=== PATIENT | male | born 1970 | race Caucasian/White ===

== ENCOUNTER 2017-03-31 10:20 | Inpatient (IN) | payer OTHER ==
[2017-03-31 11:19] VITALS: BMI 25.0
--- NOTE | 2017-03-31 11:23 | HP ---
CIWA Score - CIWA Score Nausea/Vomitin-Int. Nausea w/Dry Heave Muscle Tremors: 5 (UNABLE TO HOLD CUP OF WATER STEADILY.) Anxiety: 5 Agitation: 3 Paroxysmal Sweats: 1-Minimal Palms Moist Orientation: 0-Oriented Tacttile Disturbances: 3-Moderate Itch/Numb/Burn Auditory Disturbances: 0-None Visual Disturbances: 0-None Headache: 1-Very Mild CIWA-Ar Total Score: 22 Admission ROS BHS - HPI Chief Complaint: DETOX TX FOR ALCOHOL DEPENDENCE AND INTOXICATION Allergies/Adverse Reactions: Allergies Allergy/AdvReac Type Severity Reaction Status Date / Time No Known Allergies Allergy Verified 03/31/17 11:59 History of Present Illness: PT IS A 47 Y/O H/MALE WITH A HX ALCOHOL DEPENDENCE UNABLE TO CONTROL HIS ALCOHOL CONSUMPTION SEEKING DETOX TX. PT WAS REFERRED TO DETOX FROM [facility] WHERE HE WENT LAST NIGHT FOR C/O ALCOHOL INTOXICATION. CURRENT MIRNA = 0.132 AND PATIENT IS SLIGHTLY SLOW TO ANSWER QUESTIONS. PT IS ACCOMPANIED BY . 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 AND D/C'D 01/09/17. WENT THROUGH SPEECH REHAB/THERAPY . REPORTED ANOTHER SX ON 02/11/17 FOR FLAP REPLACEMENT HEAD SX. PT HAS A HX OF HIV+ ON THE MED-ODEFSEY 1 TAB PO DAILY. PT HAS PMD BOB PLATT M.D. REPORTS WAS ON KEPPRA WHILE INPATIENT FOR SURGERY BUT NEUROLOGIST D/C'D KEPPRA AFTER LAST FLAP SX. PT DENIES HX OF SEIZURE BEFORE OR AFTER HEAD TRUAMA. HX OF DEPRESSION-ON PAXIL. Exam Limitations: Clinical Condition, Intoxication, Language Barrier, Other ( slight speech deficit) - Ebola screening Have you traveled outside of the country in the last 21 days: No Have you had contact with anyone from an Ebola affected area: No Do you have a fever: No - Review of Systems Constitutional: Night Sweats, Changes in sleep EENT: reports: Tearing, Nose Congestion Respiratory: reports: No Symptoms reported Cardiac: reports: Lightheadedness, Palpitations, Chest Tightness GI: reports: Nausea, Poor Fluid Intake, Vomiting, Indigestion (REFLUX/HEARTBURN) , Abdominal cramping : reports: Frequency Musculoskeletal: reports: Joint Pain Integumentary: reports: No Symptoms Reported Neuro: reports: Headache, Tingling, Tremors, Unsteady Gait (HX OF FALL DUE TO ALCOHOL INTOXICATION), Dizziness Endocrine: reports: No Symptoms Reported Hematology: reports: No Symptoms Reported Psychiatric: reports: Orientated x3, Anxious, Depressed Other Systems: Reviewed and Negative Patient History - Patient Medical History Hx Anemia: No Hx Asthma: No Hx Chronic Obstructive Pulmonary Disease (COPD): No Hx Cardiac Disorders: No Hx Hypertension: No Hx Hypercholesterolemia: No HX Cerebrovascular Accident: No Hx Seizures: No (BUT WAS ON KEPPRA DUE TO BRAIN SX;STOPPED BY NEUROLOGIST 02/11/17 ) Hx Diabetes: No Hx Gastrointestinal Disorders: Yes (HEARTBURN-NO CURRENT MED) Hx Genitourinary Disorders: No Hx Sexually Transmitted Disorders: No (DENIES) Hx Renal Disease (ESRD): No Hx Thyroid Disease: No Hx Human Immunodeficiency Virus (HIV): Yes (SINCE 2005-ON ODEFSEY 1 TAB PO DAILY ) Hx Hepatitis C: No Hx Depression: Yes (AND ANXIETY- WAS ON PAXIL) Hx Suicide Attempt: No (DENIES) Hx Bipolar Disorder: No Hx Schizophrenia: No - Patient Surgical History Past Surgical History: Yes Hx Neurologic Surgery: Yes (HEAD SX DUE TO BLEEDING IN THE BRAIN 11/28/16) Hx Cataract Extraction: No Hx Cardiac Surgery: No Hx Lung Surgery: No Hx Breast Surgery: No Hx Breast Biopsy: No Hx Abdominal Surgery: No Hx Appendectomy: No Hx Cholecystectomy: No Hx Genitourinary Surgery: No Hx Orthopedic Surgery: No Other Surgical History: TRACHEAOSTOMY SEQUALA OF BRAIN SX EPISODE Anesthesia Reaction: No - PPD History Previous Implant?: Yes Documented Results: Negative w/o proof Implanted On Prior R Admission?: No PPD to be Administered?: Yes - Reproductive History Patient is a Female of Child Bearing Age (11 -55 yrs old): No (MALE) - Smoking Cessation Smoking history: Former smoker Have you smoked in the past 12 months: No If you are a former smoker, when did you quit?: 20 YRS Hx Chewing Tobacco Use: No Initiated information on smoking cessation: No - Substance & Tx. History Hx Alcohol Use: Yes (WINE/BEER/WHISKEY) Hx Substance Use: No (DENIES) Substance Use Type: Alcohol Hx Substance Use Treatment: Yes (LAST TX IN [place], [place] IN NOV 2015.) - Substances Abused WINE/BEER Route: Oral Frequency: Daily Amount used: 1 BOTTLE WINE/4 6PKS BEER Age of first use: 17 Date of Last Use: 03/30/17 Family Disease History - Family Disease History Family Disease History: Heart Disease: Father (GA;), Other: Mother (HTN; ) Admission Physical Exam [facility] - Physical General Appearance: Yes: Moderate Distress, Alcohol on Breath, Intoxicated, Irritable, Anxious HEENTM: Yes: EOMI, Normocephalic, MICHAEL, Pharynx Normal Respiratory: Yes: Chest Non-Tender, Lungs Clear, Normal Breath Sounds, No Respiratory Distress Neck: Yes: Supple, Trachea in good position, Other (HEALED TRECHEOSTOMY SCAR) Breast: Yes: Breast Exam Deferred Cardiology: Yes: Regular Rhythm, Regular Rate, S1, S2 Abdominal: Yes: Non Tender, Soft, Surgical Scar (RIGHT SIDE OF ABDOMEN(SITE OF SKULL BONE STORAGE PRIOR TO FLAP TRANSPLANT 02/11/17) AND UPPER LEFT RELATED TO BRAIN SX EPISODE) Genitourinary: Yes: Other (N/C) Back: Yes: Within Normal Limits Musculoskeletal: Yes: full range of Motion, Gait Steady Extremities: Yes: Normal Range of Motion, Non-Tender, Tremors Neurological: Yes: acidizer water well II-XII NML intact, Fully Oriented, Alert Integumentary: Yes: Dry, Warm Lymphatic: Yes: Within Normal Limits - Diagnostic (1) Alcohol dependence with uncomplicated withdrawal Current Visit: Yes Status: Acute (2) Alcohol intoxication Current Visit: Yes Status: Acute Qualifiers: Complication of substance-induced condition: uncomplicated Qualified Code(s): F10.920 - Alcohol use, unspecified with intoxication, uncomplicated (3) History of brain surgery Current Visit: Yes Status: Resolved Comment: 11/28/16 AND 02/11/17 AT [facility]. (4) HIV (human immunodeficiency virus infection) Current Visit: Yes Status: [facility] (5) GERD (gastroesophageal reflux disease) Current Visit: Yes Status: Chronic Qualifiers: Esophagitis presence: without esophagitis Qualified Code(s): K21.9 - Gastro-esophageal reflux disease without esophagitis (6) Speech problem Current Visit: Yes Status: Acute Comment: S/P BRAIN TRUAMA/SURGERY SECONDARY TO BRAIN HEMORRHAGE DUE TO FALL Cleared for Admission BHS - Detox or Rehab [facility] Level of Care: Medically Managed Detox Regimen/Protocol: Librium
[2017-03-31] MEDS ORDERED: hydrOXYzine PAMOATE 50 MG CAPSULE (FP) PO PRN (12:18)
[2017-03-31] MEDS ORDERED: MAGNESIUM CITRATE 300 ML BOTTLE PO PRN (12:18)
[2017-03-31] MEDS ORDERED: LOPERAMIDE HCL 2 MG CAPSULE PO PRN (12:18)
[2017-03-31] MEDS ORDERED: P-EPHED 60MG/TRIPROLIDI 2.5MG TABLET PO PRN (12:18)
[2017-03-31] MEDS ORDERED: MENTHOL/PHENOL 1 EACH UD MM PRN (12:18)
[2017-03-31] MEDS ORDERED: MAGNESIUM HYDROX 2400MG/30ML ORAL SUSPENSION 30 ML CUP PO PRN (12:18)
[2017-03-31] MEDS ORDERED: guaiFENesin/D-METHORPHAN HB 10 ML UNIT-DOSE CUPS PO PRN (12:18)
[2017-03-31] MEDS: chlordiazePOXIDE HCL 25 MG CAPSULE PO PRN ×2 (13:29→20:11)
--- NOTE | 2017-03-31 13:37 | CONSULT ---
[facility] Psychiatric Consult - Data Date of interview: 03/31/17 Admission source: [facility] Identifying data: This is 47 years old bruneian speaking male with no psychiatric hospitalization history intoxicated with: Alcohol Substance Abuse History: - Smoking Cessation. Smoking history: Former smoker. Have you smoked in the past 12 months: No. If you are a former smoker, when did you quit?: 20 YRS. Hx Chewing Tobacco Use: No. Initiated information on smoking cessation: No. - Substance & Tx. History. Hx Alcohol Use: Yes (WINE/ BEER/WHISKEY). Hx Substance Use: No (DENIES). Substance Use Type: Alcohol. Hx Substance Use Treatment: Yes (LAST TX [place]OV 2015.). - Substances Abused. WINE/BEER. Route: Oral. Frequency: Daily. Amount used : 1 BOTTLE WINE/4 6PKS BEER. Age of first use: 17. Date of Last Use: 03/30/17 Medical History: HIV+, Brain surgery history Psychiatric History: Patient reports history of depression., reports taking priorm to admission: Paxil 20mg poqd Physical/Sexual Abuse/Trauma History: Denies Additional Comment: Paxil 20mg poqd Mental Status Exam - Mental Status Exam Alert and Oriented to: Person Cognitive Function: Fair Patient Appearance: Unkempt Mood: Withdrawn Affect: Mood Congruent Patient Behavior: Fearful Speech Pattern: Delayed Voice Loudness: Mildly Soft/Quiet Thought Process: Circumstantial Thought Disorder: Being Controlled Hallucinations: Denies Suicidal Ideation: Denies Homicidal Ideation: Denies Insight/Judgement: Fair Sleep: Difficulty falling asleep Appetite: Fair Muscle strength/Tone: Mild Hypotonicity Gait/Station: Normal Additional Comments: Paxil 20mg poqd Psychiatric Findings - Problem List ([place] 1, 2,3) (1) Alcohol dependence with uncomplicated withdrawal Current Visit: Yes Status: Acute (2) Alcohol intoxication Current Visit: Yes Status: Acute Qualifiers: Complication of substance-induced condition: uncomplicated Qualified Code(s): F10.920 - Alcohol use, unspecified with intoxication, uncomplicated (3) Alcohol-induced mood disorder Current Visit: Yes Status: Acute - Initial Treatment Plan Initial Treatment Plan: Paxil 20mg poqd
[2017-03-31] MEDS: IBUPROFEN 400 MG TABLET (FP) PO PRN (14:19)
[2017-03-31] MEDS ORDERED: PANTOPRAZOLE 40 MG TABLET (FP) PO SCH (14:45)
[2017-03-31] MEDS ORDERED: chlordiazePOXIDE HCL 25 MG CAPSULE PO ONE (14:46)
--- NOTE | 2017-03-31 14:57 | PN ---
S Progress Note Note: Pt. c/o chest pain.He does not have hx. of CAD,he was at [facility] ED earlier then was sent here for detox. Last Vital Signs Temp Pulse Resp BP Pulse Ox 98.1 F 102 H 20 163/98 03/31/17 13:37 03/31/17 13:40 03/31/17 13:37 03/31/17 13:37 Lungs : clear Heart : RR, no murmur, sinus tachycardia EKG : Sinus tachycardia no ST elevation P : CPK/Troponin stat O2 via nasal cannula 2L/Min Librium 50mg po stat protonix stat
[2017-03-31] MEDS: amLODIPine BESYLATE 5 MG TABLET (FP) PO ONE ×2 (14:58→15:02)
[2017-03-31] MEDS ORDERED: RANITIDINE HCL 150 MG TABLET (FP) PO ONE (14:58)
[2017-03-31] MEDS: PARoxetine HCL 20 MG TABLET (FP) PO SCH (14:58)
[2017-03-31] MEDS: chlordiazePOXIDE HCL 25 MG CAPSULE PO SCH ×2 (16:48→22:15)
[2017-03-31 17:50] LABS: URINE APPEARANCE CLEAR; URINE BILIRUBIN NEGATIVE (NEGATIVE); URINE COLOR YELLOW; URINE GLUCOSE (UA) NEGATIVE (NEGATIVE); URINE KETONE 2+ (NEGATIVE); URINE LEUK ESTERASE NEGATIVE (NEGATIVE); URINE NITRITE NEGATIVE (NEGATIVE); URINE UROBILINOGEN NEGATIVE E.U./dl (0.2-1.0)
[2017-03-31 17:57] LABS: URINE BLOOD 1+ (NEGATIVE); URINE PROTEIN 1+ (NEGATIVE)
[2017-03-31 18:09] LABS: URINE MUCUS RARE; URINE RBC <1 /hpf (0-3); URINE WBC <1 /hpf (3-5)
[2017-03-31] MEDS ORDERED: ONDANSETRON *ODT* 4 MG TABLET SL ONE (19:15)
[2017-03-31] MEDS: amLODIPine BESYLATE 2.5 MG TABLET (FP) PO SCH (22:15)
[2017-03-31] MEDS: THIAMINE HCL 100 MG TABLET (FP) PO SCH (22:37)
[2017-04-01] MEDS: chlordiazePOXIDE HCL 25 MG CAPSULE PO SCH ×4 (05:03→22:08)
[2017-04-01 09:53] LABS: MCH 28.2 pg (25.7-33.7); MCHC 32.5 g/dl (32.0-35.9); PLATELET COUNT 67 K/MM3 (134-434); RDW 14.9 % (11.9-15.9); WHITE BLOOD COUNT 4.8 K/mm3 (4.0-10.0)
[2017-04-01 10:18] LABS: ALBUMIN 4.3 g/dl (3.4-5.0); ALK PHOS 110 U/L (45-117); ANION GAP 17 (8-16); BILIRUBIN,TOTAL 1.5 mg/dL (0.2-1.0); CALCIUM 7.9 mg/dL (8.5-10.1); CO2 26 mmol/L (21-32); CREATININE 0.6 mg/dL (0.7-1.3); GLUCOSE,RANDOM 89 mg/dL (74-106); SGOT/AST 293 U/L (15-37); SGPT/ALT 190 U/L (12-78)
--- NOTE | 2017-04-01 10:27 | PN ---
S CIWA - CIWA Score Nausea/Vomitin Muscle Tremors: 4-Moderate,w/Arms Extend Anxiety: 4-Mod. Anxious/Guarded Agitation: 4-Moderately Restless Paroxysmal Sweats: 3 Orientation: 0-Oriented Tacttile Disturbances: 0-None Auditory Disturbances: 0-None Visual Disturbances: 0-None Headache: 0-None Present CIWA-Ar Total Score: 17 BHS Progress Note (SOAP) Subjective: Sweating,interrupted sleep,anxiety,tremors,restless. Objective: 04/01/17 10:26 Vital Signs - 8 hr 04/01/17 04/01/17 04/01/17 03:30 06:24 09:19 Temperature 99.1 F 98.2 F Pulse Rate 116 H 109 H Respiratory 18 18 20 Rate Blood Pressure 136/95 141/89 Laboratory Tests 03/31/17 04/01/17 15:00 06:00 WBC 4.8 RBC 4.42 Hgb 12.5 Hct 38.4 MCV 87.0 MCHC 32.5 RDW 14.9 Plt Count 67 L MPV 10.0 Urine Color Yellow Urine Appearance Clear Urine pH 7.0 Ur Specific [place] 1.020 Urine Protein 1+ H Urine Glucose (UA) Negative Urine Ketones 2+ H Urine Blood 1+ H Urine Nitrite Negative Urine Bilirubin Negative Urine Urobilinogen Negative Ur Leukocyte Esterase Negative Urine RBC <1 Urine WBC <1 Urine Mucus Rare labs noted Assessment: 04/01/17 10:26 Withdrawal sx. Plan: Continue detox
[2017-04-01] MEDS: amLODIPine BESYLATE 2.5 MG TABLET (FP) PO SCH ×2 (10:38→22:09)
[2017-04-01] MEDS: PARoxetine HCL 20 MG TABLET (FP) PO SCH (10:38)
[2017-04-01] MEDS: PRENATAL VITAMINS W/ FOLIC ACID TABLET (FP) PO SCH (10:38)
[2017-04-01 10:39] LABS: SICKLE CELL SCREEN NEGATIVE (NEGATIVE)
[2017-04-01] MEDS ORDERED: THIAMINE HCL 100 MG TABLET (FP) PO ONE (10:40)
[2017-04-01 11:26] LABS: TROPONIN I < 0.02 ng/ml (0.00-0.05)
[2017-04-01] MEDS: IBUPROFEN 400 MG TABLET (FP) PO PRN (14:36)
--- NOTE | 2017-04-01 14:47 | EKG ---
Test Reason : Blood Pressure : / mmHG Vent. Rate : 096 BPM Atrial Rate : 096 BPM P-R Int : 124 ms QRS Dur : 074 ms QT Int : 360 ms P-R-T Axes : 061 047 065 degrees QTc Int : 454 ms NORMAL SINUS RHYTHM NORMAL ECG NO PREVIOUS ECGS AVAILABLE Confirmed by JAZMIN MASON MD ([id number]) on 04/01/2017 2:47:27 PM Referred By: Confirmed By:JAZMIN MASON MD
[2017-04-01] MEDS: THIAMINE HCL 100 MG TABLET (FP) PO SCH (22:08)
[2017-04-01] MEDS: RANITIDINE HCL 150 MG TABLET (FP) PO SCH (22:08)
[2017-04-01] MEDS: diphenhydrAMINE HCL 50 MG CAPSULE PO PRN (22:10)
[2017-04-02] MEDS: chlordiazePOXIDE HCL 25 MG CAPSULE PO SCH ×2 (05:41→10:17)
[2017-04-02] MEDS: PRENATAL VITAMINS W/ FOLIC ACID TABLET (FP) PO SCH (10:17)
[2017-04-02] MEDS: PARoxetine HCL 20 MG TABLET (FP) PO SCH (10:17)
[2017-04-02] MEDS: amLODIPine BESYLATE 2.5 MG TABLET (FP) PO SCH ×2 (10:17→22:14)
--- NOTE | 2017-04-02 11:04 | EKG ---
Test Reason : Blood Pressure : / mmHG Vent. Rate : 103 BPM Atrial Rate : 103 BPM P-R Int : 126 ms QRS Dur : 076 ms QT Int : 384 ms P-R-T Axes : 056 052 067 degrees QTc Int : 503 ms SINUS TACHYCARDIA OTHERWISE NORMAL ECG WHEN COMPARED WITH ECG OF 31-MAR-2017 12:35, NO SIGNIFICANT CHANGE WAS FOUND Confirmed by LONI GRIMM MD ([id number]) on 04/02/2017 11:04:14 AM Referred By: Confirmed By:LONI GRIMM MD
--- NOTE | 2017-04-02 11:59 | PN ---
S CIWA - CIWA Score Nausea/Vomitin Muscle Tremors: 4-Moderate,w/Arms Extend Anxiety: 3 Agitation: 1-Slight > Activity Paroxysmal Sweats: 3 Orientation: 4Disoriented Place/Person Tacttile Disturbances: 0-None Auditory Disturbances: 0-None Visual Disturbances: 0-None Headache: 3-Moderate CIWA-Ar Total Score: 20 BHS Progress Note (SOAP) Subjective: Interrupted sleep, Tremors, H/A, Nausea. Objective: PT. A & O X 1 (DISORIENTED TO DAY / DATE AND TO CURRENT LOCATION). NO ACUTE DISTRESS. PATIENT DENIES CHEST PAIN. 04/02/17 11:57 Vital Signs Temperature 97.4 F L 04/02/17 09:40 Pulse Rate 109 H 04/02/17 09:40 Respiratory Rate 20 04/02/17 09:40 Blood Pressure 131/91 04/02/17 09:40 O2 Sat by Pulse Oximetry (%) Laboratory Tests 03/31/17 04/01/17 04/01/17 15:00 06:00 06:00 WBC 4.8 RBC 4.42 Hgb 12.5 Hct 38.4 MCV 87.0 MCHC 32.5 RDW 14.9 Plt Count 67 L MPV 10.0 Sickle Cell Screen Negative Sodium 137 Potassium 3.4 L Chloride 94 L Carbon Dioxide 26 Anion Gap 17 H BUN 7 Creatinine 0.6 L Creat Clearance w eGFR > 60 Random Glucose 89 Calcium 7.9 L Total Bilirubin 1.5 H AST 293 H ALT 190 H Alkaline Phosphatase 110 Creatine Kinase 1353 H Creatine Kinase Index 0.5 CK-MB (CK-2) 6.544 H CK-MB (CK-2) Rel Index Troponin I < 0.02 Total Protein 8.0 Albumin 4.3 Urine Color Yellow Urine Appearance Clear Urine pH 7.0 Ur Specific [place] 1.020 Urine Protein 1+ H Urine Glucose (UA) Negative Urine Ketones 2+ H Urine Blood 1+ H Urine Nitrite Negative Urine Bilirubin Negative Urine Urobilinogen Negative Ur Leukocyte Esterase Negative Urine RBC <1 Urine WBC <1 Urine Mucus Rare RPR Titer 04/01/17 04/01/17 06:00 06:00 WBC RBC Hgb Hct MCV MCHC RDW Plt Count MPV Sickle Cell Screen Sodium Potassium Chloride Carbon Dioxide Anion Gap BUN Creatinine Creat Clearance w eGFR Random Glucose Calcium Total Bilirubin AST ALT Alkaline Phosphatase Creatine Kinase Creatine Kinase Index CK-MB (CK-2) CK-MB (CK-2) Rel Index Cancelled Troponin I Total Protein Albumin Urine Color Urine Appearance Urine pH Ur Specific [place] Urine Protein Urine Glucose (UA) Urine Ketones Urine Blood Urine Nitrite Urine Bilirubin Urine Urobilinogen Ur Leukocyte Esterase Urine RBC Urine WBC Urine Mucus RPR Titer Nonreactive LABS NOTED. RESULTS OF CK, TROPONIN, CK-MB DRAWN 04/01/17 NOTED. 04/02/17 17:15 Assessment: 04/02/17 11:58 WITHDRAWAL SYMPTOMS. Plan: CONTINUE DETOX. K-DUR, 20 MEQ PO BID (FIRST DOSE NOW). CPK LEVEL FOR TOMORROW (04/03/2017) AM.
[2017-04-02] MEDS: POTASSIUM CHLORIDE TABS 20 MEQ TABLET.ER (FP) PO SCH ×2 (13:26→22:15)
[2017-04-02] MEDS: chlordiazePOXIDE HCL 25 MG CAPSULE PO PRN (13:27)
[2017-04-02] MEDS: IBUPROFEN 400 MG TABLET (FP) PO PRN (15:38)
[2017-04-02] MEDS: chlordiazePOXIDE 5 MG CAPSULE PO SCH ×2 (17:03→22:14)
[2017-04-02] MEDS: MAG HYDROX/AL HYDROX/SIMETH 30 ML UNIT-DOSE CUP PO PRN (17:04)
[2017-04-02] MEDS: ACETAMINOPHEN 325 MG TABLET (FP) PO PRN (19:08)
[2017-04-02] MEDS: THIAMINE HCL 100 MG TABLET (FP) PO SCH (22:14)
[2017-04-02] MEDS: RANITIDINE HCL 150 MG TABLET (FP) PO SCH (22:14)
[2017-04-02] MEDS: diphenhydrAMINE HCL 50 MG CAPSULE PO PRN (22:15)
[2017-04-03] MEDS: chlordiazePOXIDE 5 MG CAPSULE PO SCH ×2 (05:49→10:14)
[2017-04-03] MEDS: PRENATAL VITAMINS W/ FOLIC ACID TABLET (FP) PO SCH (10:14)
[2017-04-03] MEDS: PARoxetine HCL 20 MG TABLET (FP) PO SCH (10:14)
[2017-04-03] MEDS: POTASSIUM CHLORIDE TABS 20 MEQ TABLET.ER (FP) PO SCH ×2 (10:14→22:07)
[2017-04-03] MEDS: amLODIPine BESYLATE 2.5 MG TABLET (FP) PO SCH ×2 (10:14→22:07)
[2017-04-03] MEDS: IBUPROFEN 400 MG TABLET (FP) PO PRN (10:15)
[2017-04-03 10:50] LABS: BILIRUBIN,TOTAL 0.8 mg/dL (0.2-1.0); SGOT/AST 136 U/L (15-37); SGPT/ALT 144 U/L (12-78)
--- NOTE | 2017-04-03 13:33 | PN ---
BHS Progress Note (SOAP) Subjective: Tremors, Anxious. Objective: PT. A & O X 1 (DISORIENTED TO DAY / DATE AND TO CURRENT LOCATION - PT HAS HISTORY OF TRAUMATIC HEAD INJURY AND BRAIN SURGERY). NO ACUTE DISTRESS. 04/03/17 13:28 Vital Signs Temperature 97.2 F L 04/03/17 09:47 Pulse Rate 106 H 04/03/17 09:47 Respiratory Rate 18 04/03/17 09:47 Blood Pressure 136/90 04/03/17 09:47 O2 Sat by Pulse Oximetry (%) Laboratory Tests 03/31/17 04/01/17 04/01/17 15:00 06:00 06:00 WBC 4.8 RBC 4.42 Hgb 12.5 Hct 38.4 MCV 87.0 MCHC 32.5 RDW 14.9 Plt Count 67 L MPV 10.0 Sickle Cell Screen Negative Sodium 137 Potassium 3.4 L Chloride 94 L Carbon Dioxide 26 Anion Gap 17 H BUN 7 Creatinine 0.6 L Creat Clearance w eGFR > 60 Random Glucose 89 Calcium 7.9 L Total Bilirubin 1.5 H AST 293 H ALT 190 H Alkaline Phosphatase 110 Creatine Kinase 1353 H Creatine Kinase Index 0.5 CK-MB (CK-2) 6.544 H CK-MB (CK-2) Rel Index Troponin I < 0.02 Total Protein 8.0 Albumin 4.3 Urine Color Yellow Urine Appearance Clear Urine pH 7.0 Ur Specific [place] 1.020 Urine Protein 1+ H Urine Glucose (UA) Negative Urine Ketones 2+ H Urine Blood 1+ H Urine Nitrite Negative Urine Bilirubin Negative Urine Urobilinogen Negative Ur Leukocyte Esterase Negative Urine RBC <1 Urine WBC <1 Urine Mucus Rare RPR Titer 04/01/17 04/01/17 04/03/17 06:00 06:00 07:00 WBC RBC Hgb Hct MCV MCHC RDW Plt Count MPV Sickle Cell Screen Sodium Potassium 3.1 L Chloride Carbon Dioxide Anion Gap BUN Creatinine Creat Clearance w eGFR Random Glucose Calcium Total Bilirubin 0.8 D AST 136 H D ALT 144 H D Alkaline Phosphatase Creatine Kinase 188 D Creatine Kinase Index CK-MB (CK-2) < 1.000 CK-MB (CK-2) Rel Index Cancelled Troponin I Total Protein Albumin Urine Color Urine Appearance Urine pH Ur Specific [place] Urine Protein Urine Glucose (UA) Urine Ketones Urine Blood Urine Nitrite Urine Bilirubin Urine Urobilinogen Ur Leukocyte Esterase Urine RBC Urine WBC Urine Mucus RPR Titer Nonreactive 04/03/17 07:00 WBC RBC Hgb Hct MCV MCHC RDW Plt Count MPV Sickle Cell Screen Sodium Potassium Chloride Carbon Dioxide Anion Gap BUN Creatinine Creat Clearance w eGFR Random Glucose Calcium Total Bilirubin AST ALT Alkaline Phosphatase Creatine Kinase Creatine Kinase Index CK-MB (CK-2) CK-MB (CK-2) Rel Index Cancelled Troponin I Total Protein Albumin Urine Color Urine Appearance Urine pH Ur Specific [place] Urine Protein Urine Glucose (UA) Urine Ketones Urine Blood Urine Nitrite Urine Bilirubin Urine Urobilinogen Ur Leukocyte Esterase Urine RBC Urine WBC Urine Mucus RPR Titer LABS NOTED. RESULTS OF REPEAT K, AST, ALT, CPK LEVELS NOTED. 04/03/17 13:32 04/03/17 13:34 Assessment: 04/03/17 13:28 WITHDRAWAL SYMPTOMS. Plan: CONTINUE DETOX. INCREASE K-DUR TO 40 MEQ BID FOR LOW REPEAT K LEVEL (04/03/2017). ADVISED PATIENT TO FOLLOW-UP WITH [employer]ATIONAL [employer]DC[employer] TEACHER AFTER DISCHARGE FROM DETOX FOR GENERAL MEDICAL ASSESSMENT AND FOR ELEVATED ADMISSION LIVER ENZYME LEVELS AND LOW K LEVEL.
[2017-04-03] MEDS: ACETAMINOPHEN 325 MG TABLET (FP) PO PRN (13:50)
[2017-04-03] MEDS: MAG HYDROX/AL HYDROX/SIMETH 30 ML UNIT-DOSE CUP PO PRN (16:45)
[2017-04-03] MEDS: chlordiazePOXIDE HCL 10 MG CAPSULE PO SCH ×2 (16:45→22:06)
[2017-04-03] MEDS: THIAMINE HCL 100 MG TABLET (FP) PO SCH (22:06)
[2017-04-03] MEDS: RANITIDINE HCL 150 MG TABLET (FP) PO SCH (22:07)
[2017-04-03] MEDS: diphenhydrAMINE HCL 50 MG CAPSULE PO PRN (22:07)
[2017-04-04] MEDS: diphenhydrAMINE HCL 50 MG CAPSULE PO PRN (01:14)
[2017-04-04] MEDS: IBUPROFEN 400 MG TABLET (FP) PO PRN ×2 (03:28→14:39)
[2017-04-04] MEDS: chlordiazePOXIDE HCL 10 MG CAPSULE PO SCH ×2 (05:24→10:12)
[2017-04-04] MEDS: amLODIPine BESYLATE 2.5 MG TABLET (FP) PO SCH (10:11)
[2017-04-04] MEDS: POTASSIUM CHLORIDE TABS 20 MEQ TABLET.ER (FP) PO SCH (10:12)
[2017-04-04] MEDS: PARoxetine HCL 20 MG TABLET (FP) PO SCH (10:12)
[2017-04-04] MEDS: PRENATAL VITAMINS W/ FOLIC ACID TABLET (FP) PO SCH (10:12)
--- NOTE | 2017-04-04 12:07 | DS ---
[facility] Detox Discharge Summary Admission Date: 03/31/17 Discharge Date: 04/04/17 - History Present History: Alcohol Dependence Additional Comments: PATIENT SCHEDULED TO BE PICKED UP BY PARTNER TO BE TAKEN HOME LATER TODAY. ADVISED PATIENT TO FOLLOW-UP WITH [employer] SPECIAL AGENT / REHAB MEDICAL PROVIDER AFTER DISCHARGE FROM DETOX FOR GENERAL MEDICAL ASSESSMENT AND FOR HISTORY OF TRAUMATIC BRAIN INJURY AND SURGERY AND FOR SPEECH DIFFICULTY. Pertinent Past History: Depression, GERD, HIV +, History of Traumatic Brain Injury and Brain Surgery. - Physical Exam Results Vital Signs: Vital Signs Temperature 98.2 F 04/04/17 09:48 Pulse Rate 90 04/04/17 09:48 Respiratory Rate 16 04/04/17 09:48 Blood Pressure 140/96 04/04/17 09:48 O2 Sat by Pulse Oximetry (%) Pertinent Admission Physical Exam Findings: WITHDRAWAL SYMPTOMS. Laboratory Tests 03/31/17 04/01/17 04/01/17 15:00 06:00 06:00 WBC 4.8 RBC 4.42 Hgb 12.5 Hct 38.4 MCV 87.0 MCHC 32.5 RDW 14.9 Plt Count 67 L MPV 10.0 Sickle Cell Screen Negative Sodium 137 Potassium 3.4 L Chloride 94 L Carbon Dioxide 26 Anion Gap 17 H BUN 7 Creatinine 0.6 L Creat Clearance w eGFR > 60 Random Glucose 89 Calcium 7.9 L Total Bilirubin 1.5 H AST 293 H ALT 190 H Alkaline Phosphatase 110 Creatine Kinase 1353 H Creatine Kinase Index 0.5 CK-MB (CK-2) 6.544 H CK-MB (CK-2) Rel Index Troponin I < 0.02 Total Protein 8.0 Albumin 4.3 Urine Color Yellow Urine Appearance Clear Urine pH 7.0 Ur Specific [place] 1.020 Urine Protein 1+ H Urine Glucose (UA) Negative Urine Ketones 2+ H Urine Blood 1+ H Urine Nitrite Negative Urine Bilirubin Negative Urine Urobilinogen Negative Ur Leukocyte Esterase Negative Urine RBC <1 Urine WBC <1 Urine Mucus Rare RPR Titer 04/01/17 04/01/17 04/03/17 06:00 06:00 07:00 WBC RBC Hgb Hct MCV MCHC RDW Plt Count MPV Sickle Cell Screen Sodium Potassium 3.1 L Chloride Carbon Dioxide Anion Gap BUN Creatinine Creat Clearance w eGFR Random Glucose Calcium Total Bilirubin 0.8 D AST 136 H D ALT 144 H D Alkaline Phosphatase Creatine Kinase 188 D Creatine Kinase Index CK-MB (CK-2) < 1.000 CK-MB (CK-2) Rel Index Cancelled Troponin I Total Protein Albumin Urine Color Urine Appearance Urine pH Ur Specific [place] Urine Protein Urine Glucose (UA) Urine Ketones Urine Blood Urine Nitrite Urine Bilirubin Urine Urobilinogen Ur Leukocyte Esterase Urine RBC Urine WBC Urine Mucus RPR Titer Nonreactive 04/03/17 07:00 WBC RBC Hgb Hct MCV MCHC RDW Plt Count MPV Sickle Cell Screen Sodium Potassium Chloride Carbon Dioxide Anion Gap BUN Creatinine Creat Clearance w eGFR Random Glucose Calcium Total Bilirubin AST ALT Alkaline Phosphatase Creatine Kinase Creatine Kinase Index CK-MB (CK-2) CK-MB (CK-2) Rel Index Cancelled Troponin I Total Protein Albumin Urine Color Urine Appearance Urine pH Ur Specific [place] Urine Protein Urine Glucose (UA) Urine Ketones Urine Blood Urine Nitrite Urine Bilirubin Urine Urobilinogen Ur Leukocyte Esterase Urine RBC Urine WBC Urine Mucus RPR Titer LABS NOTED. - Treatment Hospital Course: Detox Protocol Followed, Detoxed Safely, Responded well, Discharged Condition Good Patient has Accepted a Rehab Referral to: PT. TO GO HOME. 12-STEP/AA OUTPATIENT PROGRAMS RECOMMENDED FOR FOLLOW-UP. - Medication Discharge Medications: Ambulatory Orders Emtricitab/Rilpiviri/Tenof Ala [Odefsey Tablet] 1 each PO DAILY 03/31/17 Paroxetine HCl [Paxil -] 20 mg PO DAILY 03/31/17 Paroxetine HCl [Paxil -] 20 mg PO DAILY #30 tablet 03/31/17 - Diagnosis (1) Alcohol dependence with uncomplicated withdrawal Current Visit: Yes Status: Acute (2) Alcohol-induced mood disorder Current Visit: Yes Status: Acute (3) Speech problem Current Visit: Yes Status: Acute (4) GERD (gastroesophageal reflux disease) Current Visit: Yes Status: Chronic Qualifiers: Esophagitis presence: without esophagitis Qualified Code(s): K21.9 - Gastro-esophageal reflux disease without esophagitis (5) HIV (human immunodeficiency virus infection) Current Visit: Yes Status: Chronic (6) History of brain surgery Current Visit: Yes Status: Resolved (7) Alcohol intoxication Current Visit: Yes Status: Acute Qualifiers: Complication of substance-induced condition: uncomplicated Qualified Code(s): F10.920 - Alcohol use, unspecified with intoxication, uncomplicated - AMA Did Patient Leave Against Medical Advice: No
[2017-04-04 17:08] VITALS: BP 127/92; PULSE 97; TEMP 97.1
[2017-04-04] MEDS: ACETAMINOPHEN 325 MG TABLET (FP) PO PRN (17:19)
== END 2017-04-04 18:25 | disposition home or self-care (01) | DRG 775 ==
LOC: YASAS 10:20 → Y3N 12:29
PROVIDERS: ADMIT Internal Medicine; ATTEND Internal Medicine
PROC: HZ2ZZZZ Detoxification Services for Substance Abuse Treatment (ICD-10-PCS; principal; 2017-04-04)
DX: F10.230 Alcohol dependence with withdrawal, uncomplicated (principal); F10.24 Alcohol dependence with alcohol-induced mood disorder; R47.9 Unspecified speech disturbances; F32.9 Major depressive disorder, single episode, unspecified; Z21 Asymptomatic human immunodeficiency virus [HIV] infection status; Z87.820 Personal history of traumatic brain injury
CPT/HCPCS: 36415; 80053; 81003; 81015; 82247; 82550; 82553; 84132; 84450; 84460; 84484; 85027; 85660; 86593; 93005; 93010